=== PATIENT | male | born 1970 | race Caucasian/White ===

== ENCOUNTER 2019-10-21 08:46 | Observation (INO) ==
[2019-10-21] MEDS ORDERED: *HR* Promethazine 25 MG/ML VIAL IVP PRN (11:09)
[2019-10-21 11:54] LABS: Basophils # 0.1 K/mcL (0.0-0.2); Eosinophils # 0.7 K/mcL (0.0-0.6); Eosinophils % 7.4 %; Hematocrit 51.3 % (37.5-50.1); Immature Granulocytes % 0.1 % (0-4); Lymphocytes # 2.5 K/mcL (0.6-4.6); Mean Corpuscular HGB Conc 35.1 g/dL (31.6-35.5); Mean Corpuscular Hemoglobin 32.2 pg (28.0-33.3); Mean Corpuscular Volume 91.8 fL (83.0-100.0); Mean Platelet Volume 11.9 fL (9.4-12.4); Monocytes # 0.7 K/mcL (0.0-1.3); Monocytes % 8.2 %; Neutrophils # 4.9 K/mcL (1.6-8.9); Platelet Count 216 K/mcL (140-400); Red Blood Count 5.59 M/mcL (4.19-5.50); Red Cell Distribution Width 11.9 % (11.5-14.5); Segmented Neutrophils % 55.3 %; White Blood Count 8.8 K/mcL (4.3-11.1)
[2019-10-21 12:03] LABS: INR 1.1; Prothrombin Time 12.2 Seconds (9.4-12.1)
[2019-10-21 12:05] LABS: Activated Partial Thrombo Time 41.3 Seconds (26.0-36.0)
[2019-10-21 12:10] LABS: BUN/Creatinine Ratio 7 (6-26); Blood Urea Nitrogen 8 mg/dL (6-20); Calcium 10.2 mg/dL (8.6-10.3); Carbon Dioxide 29 mEq/L (23-29); Chloride 102 mEq/L (98-107); Glucose 89 mg/dL (70-105); Osmolality,Calculated 278 (280-300); Potassium 4.3 mEq/L (3.5-5.1); Sodium 135 mEq/L (136-145); eGFR For African Americans > 60 (> 60); eGFR For Non-African Americans > 60 (> 60)
[2019-10-21] MEDS: Ketorolac 15 MG/ML VIAL IVP PRN (12:48)
[2019-10-21] MEDS: 0.9 % Sodium Chloride 1,000 ML IVC SCH (12:49)
[2019-10-21] MEDS: Pantoprazole 40 MG VIAL IVP SCH (12:49)
[2019-10-21] MEDS: Piperacillin/Tazobactam 3.375 GM in 0.9 % Sodium Chloride Mini Bag 100 ML IVPB SCH ×2 (12:49→19:59)
[2019-10-21] MEDS: Ondansetron 4 MG/2 ML VIAL IVP PRN (18:12)
[2019-10-22] MEDS: 0.9 % Sodium Chloride 1,000 ML IVC SCH ×2 (00:56→04:30)
[2019-10-22] MEDS: Piperacillin/Tazobactam 3.375 GM in 0.9 % Sodium Chloride Mini Bag 100 ML IVPB SCH ×2 (03:04→12:06)
[2019-10-22] MEDS: Ketorolac 15 MG/ML VIAL IVP PRN (04:27)
[2019-10-22] MEDS: Pantoprazole 40 MG VIAL IVP SCH (11:52)
[2019-10-22] MEDS: Ondansetron 4 MG/2 ML VIAL IVP PRN (11:58)
[2019-10-22] MEDS ORDERED: *HR* Midazolam HCl 2 MG/2 ML VIAL ONE (15:14)
[2019-10-22] MEDS ORDERED: *HR* FentaNYL (PF) 100 MCG/2 ML VIAL ONE (15:14)
[2019-10-22] MEDS ORDERED: *HR* Propofol 200 MG/20 ML VIAL IVP ONE (15:14)
[2019-10-22] MEDS ORDERED: Lidocaine -MPF 2% 2 ML VIAL ONE (15:17)
[2019-10-22] MEDS ORDERED: *HR* Succinylcholine 200 MG/10 ML VIAL IVP ONE (15:19)
[2019-10-22] MEDS ORDERED: *HR* Rocuronium Bromide 50 MG/5 ML VIAL ONE (15:19)
[2019-10-22] MEDS ORDERED: Lidocaine HCL 4 ML Topical Solution (Laryng-O-Jet Kit Sterile Pak) TP ONE (15:19)
[2019-10-22] MEDS ORDERED: Acetaminophen IV 1,000 MG/100 ML INFUS..BTL ONE (15:23)
[2019-10-22] MEDS ORDERED: CefOXitin 2,000 MG VIAL ONE (16:10)
[2019-10-22] MEDS ORDERED: Ondansetron 4 MG/2 ML VIAL ONE (16:20)
[2019-10-22] MEDS ORDERED: Dexamethasone 4 MG/ML VIAL ONE (16:20)
[2019-10-22] MEDS ORDERED: Ketorolac 30 MG/ML VIAL ONE (16:36)
[2019-10-22] MEDS ORDERED: Neostigmine Methylsulfate 3 MG/3 ML SYRINGE ONE (16:40)
[2019-10-22] MEDS ORDERED: Ondansetron 4 MG/2 ML VIAL IVP ONE (17:14)
[2019-10-22] MEDS ORDERED: *HR* Promethazine 25 MG/ML VIAL IVP PRN (17:15)
[2019-10-22] MEDS: *HR* HYDROmorphone (PF) 1 MG/ML SYRINGE IVP PRN ×2 (17:21→17:31)
[2019-10-22 20:44] VITALS: BP 147/87
== END 2019-10-22 21:10 | disposition home or self-care (01) ==
LOC: 3BNU
PROVIDERS: ADMIT Surgery; ATTEND Surgery